=== PATIENT | male | born 1995 | race Caucasian/White ===

== ENCOUNTER 2025-01-10 02:40 | Inpatient (IN) | payer OTHER, MEDICAID ==
[~2025-01-10] VITALS: Ht 170.2 cm; Wt 83.9 kg
[2025-01-10 03:31] LABS: BASOPHILS % 1.1 % (0.0-2.0); EOSINOPHILS % 2.1 % (0.0-5.0); HEMATOCRIT. 38.7 % (42.0-52.0); HEMOGLOBIN. 12.7 g/dL (14.0-18.0); MEAN CORPUSCULAR HEMOGLOBIN 28.1 pg (28.0-32.0); MEAN CORPUSCULAR HGB CONC 32.7 g/dL (31.0-37.0); MEAN CORPUSCULAR VOLUME 85.7 fL (80.0-94.0); MEAN PLATELET VOLUME 8.3 fl (7.4-10.4); MONOCYTES % 7.9 % (2.0-8.0); NEUTROPHILS % 58.9 % (40.0-76.0); PLATELET 275 x1000/uL (130-400); RED BLOOD CELL COUNT 4.51 mill/uL (4.7-6.1); RED CELL DISTRIBUTION WIDTH 14.1 % (11.6-14.6); WHITE BLOOD COUNT 11.2 x1000/uL (4.5-11.0)
[2025-01-10 03:37] LABS: CHLORIDE 105 mEq/L (98-107); SODIUM 140 mEq/L (136-145)
[2025-01-10 03:38] LABS: CARBON DIOXIDE 26 mEq/L (21-32)
[2025-01-10 03:39] LABS: CALCIUM 9.1 mg/dL (8.7-10.4)
[2025-01-10] MEDS: KETOROLAC 30MG/ML VIAL IM ONE (03:42)
[2025-01-10 03:43] LABS: GLUCOSE 117 mg/dL (70-105); UREA NITROGEN BLOOD 20 mg/dL (9-23)
[2025-01-10] MEDS: HYDROCODONE/ACETAMINOPHEN 5/325MG TABLET PO SCH (06:26)
[2025-01-10] MEDS: VANCOMYCIN 1G PREMIX 200 ML IV SCH (06:27)
[2025-01-10] MEDS ORDERED: MAGNESIUM/ALUMINUM HYDROXIDE/SIMETHICONE 30ML UDC PO PRN (08:15)
[2025-01-10] MEDS ORDERED: IPRATROPIUM/ALBUTEROL 0.5-3(2.5)MG/3ML NEB HHN PRN (08:15)
[2025-01-10] MEDS ORDERED: DOCUSATE SODIUM 100MG CAPSULE PO PRN (08:15)
[2025-01-10] MEDS ORDERED: ONDANSETRON HCL 4MG/2ML INJ IV PRN (08:15)
[2025-01-10] MEDS ORDERED: ACETAMINOPHEN 325MG TABLET PO PRN ×2 (08:15)
[2025-01-10] MEDS ORDERED: CLONIDINE 0.1MG TABLET PO PRN (08:15)
[2025-01-10] MEDS ORDERED: NALOXONE HCL 0.4MG/ML VIAL IV PRN (08:45)
[2025-01-10] MEDS: THIAMINE HCL 100MG TABLET PO SCH (08:49)
[2025-01-10 09:00] VITALS: BP 153/66; PULSE 54; RESP 18; TEMP 36.6; O2SAT 96
[2025-01-10 09:32] LABS: INR 0.9; PARTIAL THROMBOPLASTIN TIME 25.9 sec (23.4-31.0); PROTHROMBIN TIME 9.8 sec (9.6-11.0)
[2025-01-10] MEDS: DEXT 5%/LACTATED RINGERS 1,000 ML IV SCH (10:05)
[2025-01-10] MEDS ORDERED: LORAZEPAM 2MG/ML INJ IV PRN (10:45)
[2025-01-10 10:56] VITALS: BP 153/66; PULSE 54; RESP 18; TEMP 36.6
[2025-01-10] MEDS ORDERED: HYDRALAZINE 20MG/ML VIAL IV PRN (11:30)
[2025-01-10 12:00] VITALS: BP 142/96; PULSE 52; RESP 22; TEMP 36.7; O2SAT 100
[2025-01-10] MEDS: HYDROCODONE/ACETAMINOPHEN 5/325MG TABLET PO PRN (13:32)
[2025-01-10 16:00] VITALS: BP 170/95; PULSE 53; RESP 20; TEMP 36.1; O2SAT 100
[2025-01-10] MEDS: LIDOCAINE HCL 1%/EPI 1:200,000 30 ML VIAL MC NR (16:30)
[2025-01-10 17:09] VITALS: BP 170/95; PULSE 53; RESP 20; TEMP 36.1; O2SAT 100
[2025-01-10] MEDS: HYDRALAZINE 10 MG in SODIUM CHLORIDE 0.9% 49.5 ML IV PRN (18:46)
[2025-01-10 19:49] LABS: CHLORIDE 104 mEq/L (98-107); POTASSIUM 4.1 mEq/L (3.5-5.1); SODIUM 139 mEq/L (136-145)
[2025-01-10 19:50] LABS: CALCIUM 9.9 mg/dL (8.7-10.4); CARBON DIOXIDE 26 mEq/L (21-32)
[2025-01-10 19:55] LABS: CREATININE 0.8 mg/dL (0.6-1.3); GLUCOSE 106 mg/dL (70-105); UREA NITROGEN BLOOD 16 mg/dL (9-23)
[2025-01-10 19:56] LABS: TROPONIN I HIGH SENSITIVITY 20 ng/L (3.0-53)
[2025-01-10 19:57] LABS: CREATINE KINASE 121 IU/L (46-171)
[2025-01-10 19:58] LABS: PHOSPHORUS 3.3 mg/dL (2.5-4.9)
[2025-01-10 20:00] VITALS: BP 151/95; PULSE 65; RESP 19; TEMP 36.1; O2SAT 100
[2025-01-10] MEDS: SULFAMETHOXAZOLE/TRIMETHOPRIM 800/160MG TABLET PO SCH (20:24)
[2025-01-10] MEDS: KETOROLAC 30MG/ML VIAL IV PRN (20:26)
[2025-01-11 04:00] VITALS: BP 161/94; PULSE 67; RESP 18; TEMP 37; O2SAT 99
[2025-01-11] MEDS: CLONIDINE 0.1MG TABLET PO PRN (05:28)
[2025-01-11 07:08] LABS: CARBON DIOXIDE 27 mEq/L (21-32); CHLORIDE 104 mEq/L (98-107); POTASSIUM 3.8 mEq/L (3.5-5.1); SODIUM 139 mEq/L (136-145)
[2025-01-11 07:10] LABS: CALCIUM 9.3 mg/dL (8.7-10.4)
[2025-01-11 07:12] LABS: BASOPHILS % 0.5 % (0.0-2.0); EOSINOPHILS % 0.5 % (0.0-5.0); HEMATOCRIT. 38.5 % (42.0-52.0); LYMPHOCYTES % 22.6 % (20.0-50.0); MEAN CORPUSCULAR HEMOGLOBIN 29.3 pg (28.0-32.0); MEAN CORPUSCULAR HGB CONC 33.7 g/dL (31.0-37.0); MEAN PLATELET VOLUME 8.5 fl (7.4-10.4); MONOCYTES % 9.7 % (2.0-8.0); NEUTROPHILS % 66.7 % (40.0-76.0); PLATELET 270 x1000/uL (130-400); RED BLOOD CELL COUNT 4.43 mill/uL (4.7-6.1); RED CELL DISTRIBUTION WIDTH 14.4 % (11.6-14.6); WHITE BLOOD COUNT 10.3 x1000/uL (4.5-11.0)
[2025-01-11 07:14] LABS: CREATININE 0.9 mg/dL (0.6-1.3); GLUCOSE 108 mg/dL (70-105); TRIGLYCERIDE 91 mg/dL (0-150)
[2025-01-11 07:15] LABS: CHOLESTEROL 181 mg/dL (<200); LDL CHOLESTEROL 85 mg/dL (5-100); T4 FREE 1.31 ng/dL (0.89-1.76); THYROID STIMULATING HORMONE 1.84 uIU/mL (0.55-4.78); UREA NITROGEN BLOOD 13 mg/dL (9-23)
[2025-01-11 07:16] LABS: HDL CHOLESTEROL 75 mg/dL (>55)
[2025-01-11 08:00] VITALS: BP 132/77; PULSE 55; RESP 20; TEMP 36.6; O2SAT 99
[2025-01-11] MEDS: FAMOTIDINE 20MG/2ML VIAL IV SCH (09:36)
[2025-01-11] MEDS: THIAMINE HCL 100 MG/1 ML 2ML VIAL IM SCH (09:36)
[2025-01-11 12:00] VITALS: BP 150/107; PULSE 60; RESP 20; TEMP 36.7; O2SAT 100
[2025-01-11 16:00] VITALS: BP 152/97; PULSE 68; RESP 20; TEMP 36.7; O2SAT 100
[2025-01-11 20:00] VITALS: BP 143/78; PULSE 68; RESP 18; TEMP 36.8; O2SAT 98
[2025-01-12] VITALS: BP 145/76; PULSE 72; RESP 18; TEMP 36.9; O2SAT 99
[2025-01-12 04:00] VITALS: BP 150/87; PULSE 53; RESP 18; TEMP 37.2; O2SAT 97
[2025-01-12 08:00] VITALS: BP 148/86; PULSE 59; RESP 19; TEMP 36.8; O2SAT 99
[2025-01-12 12:00] VITALS: BP 151/81; PULSE 53; RESP 19; TEMP 36.7; O2SAT 99
[2025-01-12] MEDS ORDERED: IBUP-2030 PO (13:10)
[2025-01-12] MEDS ORDERED: AM250 PO (13:10)
[2025-01-12 13:51] VITALS: BP 150/70; PULSE 85; TEMP 98; O2SAT 99
== END 2025-01-12 15:38 | disposition home or self-care (01) | DRG 384 ==
LOC: ER 02:40 → 8EST 06:06 → EDBEDREQTM 08:39 → EDBEDREQ 08:39
PROVIDERS: ADMIT Internal Medicine; ATTEND Internal Medicine
DX: S60.444A External constriction of right ring finger, initial encounter (principal); R56.9 Unspecified convulsions; F10.10 Alcohol abuse, uncomplicated; M79.89 Other specified soft tissue disorders; I10 Essential (primary) hypertension; R00.1 Bradycardia, unspecified; Y90.9 Presence of alcohol in blood, level not specified; F17.210 Nicotine dependence, cigarettes, uncomplicated
CPT/HCPCS: 36415; 73120; 80048; 80061; 80320; 82550; 83735; 84100; 84439; 84443; 84484; 85025; 86900; 93005; 99285; A4606; J0360; J1885; J3370; J3411; J3490; G0480